=== PATIENT | female | born 1950 | race Caucasian/White ===

== ENCOUNTER → 2021-03-28 | Outpatient (CLI) | payer MEDICARE, BC ==
[~2021-03-28] MED LIST: ACYC-40 PO; ALBU6.7H8 INH; ASPI81TA45 PO; ATOR40TA78 PO; BECL10.62 INH; CETI10TA32 PO; CHRO1000 PO; CRAN425C4 PO; ESCI10TA97 PO; GABA600T7 PO; L.AC1CAP6 PO; LEVO88TA4 PO; LYSI500T25 PO; METH-639 PO; MONT10TA17 PO; MULT-449 PO; OXYB5TAB10 PO; PANT40TA6 PO
[2021-03-28 15:37] LABS: BASOPHILS % (AUTO) 2 % (0-1); EOSINOPHILS % (AUTO) 5 % (1-7); LYMPHOCYTES % (AUTO) 56 % (22-44); MEAN CORPUSCULAR HEMOGLOBIN 32.3 pg (27.0-34.8); MEAN CORPUSCULAR HGB CONC 33.6 g/dL (32.4-35.8); MEAN PLATELET VOLUME 9.5 fL (7.4-10.4); MONOCYTES % (AUTO) 7 % (2-9); NEUTROPHILS % (AUTO) 30 % (42-75); PLATELET COUNT 255 x10^3/uL (130-400); RED BLOOD COUNT 4.15 x10^6/uL (3.82-5.3); RED CELL DISTRIBUTION WIDTH 13.6 % (9.6-15.2)
[2021-03-28 15:43] LABS: ALBUMIN 3.9 g/dL (3.4-5.0); ANION GAP 3 mmol/L (5-15); CALCIUM 9.4 mg/dL (8.5-10.1); CHLORIDE 110 mmol/L (98-107)
[2021-03-28 15:47] LABS: ALANINE AMINOTRANSFERASE 29 U/L (12-78); ALKALINE PHOSPHATASE 91 U/L (45-117); BILIRUBIN,TOTAL 0.5 mg/dL (0.2-1.0); CREATININE 0.71 mg/dL (0.55-1.02)
[2021-03-28 15:55] LABS: INTERNATIONAL NORMALIZED RATIO 1.04 (0.93-1.1); PROTHROMBIN TIME 11.1 Seconds (9.6-11.5)
[2021-03-28 16:22] LABS: MD SCAN
[2021-03-28 21:07] LABS: MICROSCOPIC AUTO
== END | disposition home or self-care (01) ==
LOC: STAR 13:58
PROVIDERS: ATTEND Neurological Surgery
DX: Z01.818 Encounter for other preprocedural examination (principal); Z01.812 Encounter for preprocedural laboratory examination; Z01.811 Encounter for preprocedural respiratory examination; Z01.810 Encounter for preprocedural cardiovascular examination; R79.1 Abnormal coagulation profile; M48.061 Spinal stenosis, lumbar region without neurogenic claudication; M47.896 Other spondylosis, lumbar region; R82.90 Unspecified abnormal findings in urine; R94.31 Abnormal electrocardiogram [ECG] [EKG]; M51.36 Other intervertebral disc degeneration, lumbar region; M41.86 Other forms of scoliosis, lumbar region
CPT/HCPCS: 36415; 71046; 72114; 80053; 81001; 85025; 85610; 85730; 87086; 93005

== ENCOUNTER → 2021-04-10 | Outpatient (CLI) | payer MEDICARE, BC ==
[2021-04-10 10:55] LABS: MICROSCOPIC AUTO
== END | disposition home or self-care (01) ==
LOC: STAR 10:01
PROVIDERS: ATTEND Neurological Surgery
DX: Z01.812 Encounter for preprocedural laboratory examination (principal); Z20.822 Contact with and (suspected) exposure to COVID-19
CPT/HCPCS: 81001; 87086; U0003; U0005

== ENCOUNTER 2021-04-14 05:24 | Inpatient (IN) | payer MEDICARE, BC ==
[~2021-04-14] VITALS: Ht 172.7 cm; Wt 94.7 kg
[2021-04-14 05:55] VITALS: BP 113/78
[2021-04-14] MEDS ORDERED: CHLORHEXIDINE 15 ML UDC PO ONE (06:00)
[2021-04-14] MEDS ORDERED: LACTATED RINGERS 1,000 ML IV SCH (06:00)
[2021-04-14] MEDS ORDERED: HEPARIN 1,000 UNITS/ML, 30ML ONE (06:04)
[2021-04-14] MEDS ORDERED: BACITRACIN 50,000 UNIT ONE (06:04)
[2021-04-14] MEDS ORDERED: PROPOFOL 50 ML ONE (06:48)
[2021-04-14] MEDS ORDERED: MIDAZOLAM 1 MG/ML, 2ML ONE (06:48)
[2021-04-14] MEDS ORDERED: FENTANYL PF 250 MCG/5ML ONE (06:48)
[2021-04-14] MEDS ORDERED: KETAMINE 50 MG/ML, 10ML ONE (06:54)
[2021-04-14] MEDS ORDERED: HEPARIN 1,000 UNITS/ML, 30ML IVPB ONE (07:59)
[2021-04-14] MEDS ORDERED: NEOSTIGMINE 1 MG/ML, 10ML ONE (08:07)
[2021-04-14] MEDS ORDERED: CEFAZOLIN 1,000 MG ONE (08:07)
[2021-04-14] MEDS ORDERED: ROCURONIUM 10MG/ML,5ML ONE (08:07)
[2021-04-14] MEDS ORDERED: DEXAMETHASONE 4 MG/ML, 1ML ONE (08:07)
[2021-04-14] MEDS ORDERED: GLYCOPYRROLATE 0.2MG/1ML, 5ML ONE (08:07)
[2021-04-14] MEDS ORDERED: LIDOCAINE-MPF 2% ,5ML ONE (08:07)
[2021-04-14] MEDS ORDERED: ONDANSETRON 2MG/ML, 2ML ONE (08:07)
[2021-04-14] MEDS ORDERED: PROPOFOL 10 MG/ML, 20ML ONE (08:07)
[2021-04-14] MEDS ORDERED: SUCCINYLCHOLINE 20 MG/ML, 10ML ONE (08:07)
[2021-04-14] MEDS ORDERED: SUGAMMADEX 200 MG/2 ML IVPush ONE ×2 (08:40)
[2021-04-14] MEDS ORDERED: PROMETHAZINE 25 MG/ML, 1ML ONE (09:18)
[2021-04-14] MEDS: PROMETHAZINE 25 MG/ML, 1ML IVPush PRN ×2 (09:23→09:54)
[2021-04-14] MEDS ORDERED: MEPERIDINE/PF 25MG/0.5ML IVPush PRN (09:30)
[2021-04-14] MEDS ORDERED: ALBUTEROL SULFATE 2.5 MG/3 ML NPPB PRN (09:30)
[2021-04-14] MEDS ORDERED: METHOCARBAMOL 1,000 MG in DEXTROSE 5% 100 ML IV PRN (09:30)
[2021-04-14] MEDS ORDERED: LABETALOL 5MG/ML, 20ML IV PRN ×2 (09:30→11:00)
[2021-04-14] MEDS ORDERED: LORazepam 2 MG/ML, 1ML IVPush PRN (09:30)
[2021-04-14] MEDS ORDERED: OXYcodone 5 MG/5 ML ORAL.SOL UDC PO PRN (09:30)
[2021-04-14] MEDS ORDERED: ACETAMINOPHEN 325 MG TABLET PO PRN (09:30)
[2021-04-14] MEDS ORDERED: FENTANYL PF 100 MCG/2ML IV PRN (09:30)
[2021-04-14] MEDS ORDERED: HYDROmorphone 1 MG/ML, 1ML INJ IVPush PRN (09:30)
[2021-04-14] MEDS ORDERED: DIPHENHYDRAMINE 25 MG CAPSULE PO PRN (10:30)
[2021-04-14] MEDS ORDERED: MAGNESIUM HYDROXIDE 8%, 30ML UDC PO PRN (11:00)
[2021-04-14] MEDS ORDERED: ALBUTEROL HFA 90 MCG/SPRAY INH PRN (11:00)
[2021-04-14] MEDS ORDERED: PROMETHAZINE 25 MG/ML, 1ML IM PRN (11:00)
[2021-04-14] MEDS ORDERED: [UNRECOGNIZED DRUG - REMARK] MC SCH (11:00)
[2021-04-14] MEDS ORDERED: ONDANSETRON 2MG/ML, 2ML IV PRN (11:00)
[2021-04-14] MEDS: D5%-0.9% NACL+KCL 20MEQ 1,000 ML IV SCH ×2 (11:15→21:46)
[2021-04-14] MEDS: OXYcodone IR 5MG TABLET PO PRN ×2 (11:20→14:52)
[2021-04-14 12:25] VITALS: BP 121/74
[2021-04-14] MEDS: CEFAZOLIN PMX 1GM/50ML 50 ML IVPB SCH ×2 (15:03→23:34)
[2021-04-14] MEDS: METHOCARBAMOL 750 MG TABLET PO SCH ×2 (15:30→23:30)
[2021-04-14] MEDS: METHOCARBAMOL 750 MG in DEXTROSE 5% 100 ML IV SCH (15:42)
[2021-04-14] MEDS: GABAPENTIN 300 MG CAPSULE PO SCH ×2 (15:49→21:04)
[2021-04-14] MEDS: HYDROcodone/APAP 10/325 MG TABLET PO PRN ×2 (18:20→23:40)
[2021-04-14 19:29] VITALS: BP 106/66
[2021-04-14] MEDS: MONTELUKAST 10 MG TABLET PO SCH (21:04)
[2021-04-14] MEDS: ATORVASTATIN 40 MG TABLET PO SCH (21:04)
[2021-04-15] MEDS: METHOCARBAMOL 750 MG in DEXTROSE 5% 100 ML IV SCH ×4 (00:15→23:21)
[2021-04-15 00:20] VITALS: BP 104/70
[2021-04-15 03:25] VITALS: BP 109/71
[2021-04-15 04:56] LABS: BASOPHILS % (AUTO) 0 % (0-1); EOSINOPHILS % (AUTO) 0 % (1-7); LYMPHOCYTES % (AUTO) 19 % (22-44); MEAN CORPUSCULAR HEMOGLOBIN 32.5 pg (27.0-34.8); MEAN CORPUSCULAR HGB CONC 33.8 g/dL (32.4-35.8); MEAN PLATELET VOLUME 9.3 fL (7.4-10.4); MONOCYTES % (AUTO) 8 % (2-9); NEUTROPHILS % (AUTO) 73 % (42-75); PLATELET COUNT 222 x10^3/uL (130-400); RED BLOOD COUNT 3.96 x10^6/uL (3.82-5.3); RED CELL DISTRIBUTION WIDTH 14.2 % (9.6-15.2)
[2021-04-15 05:00] LABS: CHLORIDE 110 mmol/L (98-107)
[2021-04-15 05:05] LABS: ANION GAP 7 mmol/L (5-15); CALCIUM 8.7 mg/dL (8.5-10.1)
[2021-04-15] MEDS: LEVOTHYROXINE 88 MCG TABLET PO SCH (06:36)
[2021-04-15] MEDS: PANTOPRAZOLE 40MG TABLET PO SCH (06:36)
[2021-04-15] MEDS: ENOXAPARIN 40 MG/0.4 ML SQ SCH (06:36)
[2021-04-15] MEDS: D5%-0.9% NACL+KCL 20MEQ 1,000 ML IV SCH ×3 (07:00→21:01)
[2021-04-15] MEDS: METHOCARBAMOL 750 MG TABLET PO SCH ×3 (07:12→21:00)
[2021-04-15 07:50] VITALS: BP 112/64
[2021-04-15] MEDS: SENNA/DOCUSATE TABLET PO SCH (08:02)
[2021-04-15] MEDS: GABAPENTIN 300 MG CAPSULE PO SCH ×3 (08:02→20:00)
[2021-04-15] MEDS: CETIRIZINE 10 MG TABLET PO SCH (08:03)
[2021-04-15] MEDS: ACYCLOVIR 800 MG TABLET PO SCH (08:03)
[2021-04-15] MEDS: CITALOPRAM 20 MG TABLET PO SCH (08:03)
[2021-04-15] MEDS: HYDROcodone/APAP 10/325 MG TABLET PO PRN (08:03)
[2021-04-15] MEDS: OXYBUTYNIN CHLORIDE 5 MG TABLET PO SCH (08:03)
[2021-04-15 13:42] VITALS: BP 116/71
[2021-04-15] MEDS: METOCLOPRAMIDE 10MG TABLET PO SCH (15:28)
[2021-04-15 19:02] VITALS: BP 120/74
[2021-04-15] MEDS: MONTELUKAST 10 MG TABLET PO SCH (20:00)
[2021-04-15] MEDS: ATORVASTATIN 40 MG TABLET PO SCH (20:00)
[2021-04-15] MEDS: ZOLPIDEM 10MG TABLET PO PRN (20:00)
[2021-04-16 00:56] VITALS: BP 110/68
[2021-04-16] MEDS: HYDROcodone/APAP 10/325 MG TABLET PO PRN ×2 (01:02→12:25)
[2021-04-16 05:27] LABS: BASOPHILS % (AUTO) 1 % (0-1); EOSINOPHILS % (AUTO) 3 % (1-7); LYMPHOCYTES % (AUTO) 39 % (22-44); MEAN CORPUSCULAR HEMOGLOBIN 32.3 pg (27.0-34.8); MEAN CORPUSCULAR HGB CONC 33.6 g/dL (32.4-35.8); MEAN PLATELET VOLUME 9.1 fL (7.4-10.4); MONOCYTES % (AUTO) 9 % (2-9); NEUTROPHILS % (AUTO) 48 % (42-75); PLATELET COUNT 237 x10^3/uL (130-400); RED BLOOD COUNT 4.16 x10^6/uL (3.82-5.3); RED CELL DISTRIBUTION WIDTH 14.2 % (9.6-15.2)
[2021-04-16 05:32] LABS: ANION GAP 10 mmol/L (5-15); CALCIUM 8.8 mg/dL (8.5-10.1); CHLORIDE 106 mmol/L (98-107)
[2021-04-16 05:37] LABS: CREATININE 0.81 mg/dL (0.55-1.02)
[2021-04-16] MEDS: ENOXAPARIN 40 MG/0.4 ML SQ SCH (06:06)
[2021-04-16] MEDS: PANTOPRAZOLE 40MG TABLET PO SCH (06:06)
[2021-04-16] MEDS: METOCLOPRAMIDE 10MG TABLET PO SCH ×3 (06:06→16:59)
[2021-04-16] MEDS: LEVOTHYROXINE 88 MCG TABLET PO SCH (06:06)
[2021-04-16 07:31] VITALS: BP 106/67
[2021-04-16] MEDS: METHOCARBAMOL 750 MG TABLET PO SCH ×3 (07:39→16:59)
[2021-04-16] MEDS: METHOCARBAMOL 750 MG in DEXTROSE 5% 100 ML IV SCH (08:46)
[2021-04-16] MEDS: ACYCLOVIR 800 MG TABLET PO SCH (09:28)
[2021-04-16] MEDS: OXYBUTYNIN CHLORIDE 5 MG TABLET PO SCH (09:28)
[2021-04-16] MEDS: CITALOPRAM 20 MG TABLET PO SCH (09:28)
[2021-04-16] MEDS: GABAPENTIN 300 MG CAPSULE PO SCH ×3 (09:29→20:44)
[2021-04-16] MEDS: CETIRIZINE 10 MG TABLET PO SCH (09:29)
[2021-04-16] MEDS: SENNA/DOCUSATE TABLET PO SCH (09:29)
[2021-04-16 13:10] VITALS: BP 91/59
[2021-04-16] MEDS: D5%-0.9% NACL+KCL 20MEQ 1,000 ML IV SCH ×2 (13:26→21:53)
[2021-04-16] MEDS: MAGNESIUM CITRATE 300ML ORAL SOL PO PRN (17:01)
[2021-04-16 19:07] VITALS: BP 113/73
[2021-04-16] MEDS: ATORVASTATIN 40 MG TABLET PO SCH (20:44)
[2021-04-16] MEDS: MONTELUKAST 10 MG TABLET PO SCH (20:44)
[2021-04-16] MEDS: ZOLPIDEM 10MG TABLET PO PRN (20:45)
[2021-04-17] MEDS: METHOCARBAMOL 750 MG TABLET PO SCH ×3 (00:25→17:00)
[2021-04-17 02:31] VITALS: BP 120/74
[2021-04-17] MEDS: PANTOPRAZOLE 40MG TABLET PO SCH (05:00)
[2021-04-17] MEDS: LEVOTHYROXINE 88 MCG TABLET PO SCH (05:00)
[2021-04-17 05:41] LABS: BASOPHILS % (AUTO) 1 % (0-1); EOSINOPHILS % (AUTO) 5 % (1-7); LYMPHOCYTES % (AUTO) 39 % (22-44); MEAN CORPUSCULAR HEMOGLOBIN 32.3 pg (27.0-34.8); MEAN CORPUSCULAR HGB CONC 33.7 g/dL (32.4-35.8); MEAN PLATELET VOLUME 9.1 fL (7.4-10.4); MONOCYTES % (AUTO) 9 % (2-9); NEUTROPHILS % (AUTO) 47 % (42-75); PLATELET COUNT 225 x10^3/uL (130-400); RED CELL DISTRIBUTION WIDTH 13.9 % (9.6-15.2)
[2021-04-17 05:49] LABS: ANION GAP 6 mmol/L (5-15); CALCIUM 9.1 mg/dL (8.5-10.1); CHLORIDE 106 mmol/L (98-107)
[2021-04-17 05:50] LABS: CREATININE 0.72 mg/dL (0.55-1.02)
[2021-04-17] MEDS: METOCLOPRAMIDE 10MG TABLET PO SCH ×2 (06:00→11:00)
[2021-04-17] MEDS ORDERED: BUPIVACAINE/PF 0.5% ONE (06:17)
[2021-04-17] MEDS ORDERED: BACITRACIN 50,000 UNIT ONE (06:17)
[2021-04-17 06:50] VITALS: BP 107/70
[2021-04-17] MEDS: OXYBUTYNIN CHLORIDE 5 MG TABLET PO SCH (08:04)
[2021-04-17] MEDS: CITALOPRAM 20 MG TABLET PO SCH (08:04)
[2021-04-17] MEDS: ACYCLOVIR 800 MG TABLET PO SCH (08:04)
[2021-04-17] MEDS: SENNA/DOCUSATE TABLET PO SCH (08:04)
[2021-04-17] MEDS: GABAPENTIN 300 MG CAPSULE PO SCH ×3 (08:04→20:07)
[2021-04-17] MEDS: CETIRIZINE 10 MG TABLET PO SCH (08:04)
[2021-04-17] MEDS: D5%-0.9% NACL+KCL 20MEQ 1,000 ML IV SCH ×2 (09:00)
[2021-04-17] MEDS ORDERED: CHLORHEXIDINE 15 ML UDC ONE (10:11)
[2021-04-17] MEDS ORDERED: FENTANYL PF 250 MCG/5ML ONE (10:26)
[2021-04-17] MEDS ORDERED: MIDAZOLAM 1 MG/ML, 2ML ONE (10:26)
[2021-04-17] MEDS ORDERED: PROPOFOL 100 ML ONE (10:27)
[2021-04-17] MEDS ORDERED: PROPOFOL 10 MG/ML, 20ML ONE (10:29)
[2021-04-17] MEDS ORDERED: ONDANSETRON 2MG/ML, 2ML ONE (10:29)
[2021-04-17] MEDS ORDERED: CEFAZOLIN 1,000 MG ONE (10:29)
[2021-04-17] MEDS ORDERED: NEOSTIGMINE 1 MG/ML, 10ML ONE (10:29)
[2021-04-17] MEDS ORDERED: ROCURONIUM 10MG/ML,5ML ONE (10:29)
[2021-04-17] MEDS ORDERED: DEXAMETHASONE 4 MG/ML, 1ML ONE (10:29)
[2021-04-17] MEDS ORDERED: GLYCOPYRROLATE 0.2MG/1ML, 5ML ONE (10:29)
[2021-04-17] MEDS ORDERED: CHLORHEXIDINE 15 ML UDC PO ONE (11:00)
[2021-04-17] MEDS ORDERED: PHENYLEPHRINE 10 MG/ML ONE (11:56)
[2021-04-17] MEDS ORDERED: HALOPERIDOL 5 MG/ML IV PRN (12:00)
[2021-04-17] MEDS ORDERED: hydrALAzine 20 MG/ML, 1ML IV PRN (12:00)
[2021-04-17] MEDS ORDERED: ALBUTEROL SULFATE 2.5 MG/3 ML NPPB PRN (12:00)
[2021-04-17] MEDS ORDERED: ALBUTEROL/IPRATROPIUM 2.5MG/0.5MG, 3 ML NPPB PRN (12:00)
[2021-04-17] MEDS ORDERED: MEPERIDINE/PF 25MG/0.5ML IVPush PRN (12:00)
[2021-04-17] MEDS ORDERED: LABETALOL 5MG/ML, 20ML IV PRN (12:00)
[2021-04-17] MEDS ORDERED: PROMETHAZINE 25 MG/ML, 1ML IVPush PRN (12:00)
[2021-04-17] MEDS ORDERED: OXYcodone 5 MG/5 ML ORAL.SOL UDC PO PRN (12:00)
[2021-04-17] MEDS ORDERED: ACETAMINOPHEN 325 MG TABLET PO PRN (12:00)
[2021-04-17] MEDS ORDERED: morphine SULFATE 10 MG/ML, 1ML IVPush PRN (12:00)
[2021-04-17] MEDS ORDERED: BACITRACIN 50,000 UNIT IM ONE (12:27)
[2021-04-17] MEDS ORDERED: BUPIVACAINE/PF-EPI 0.5% 1:200K INFIL ONE (12:27)
[2021-04-17] MEDS ORDERED: PROPOFOL 50 ML ONE (13:33)
[2021-04-17] MEDS ORDERED: FENTANYL PF 100 MCG/2ML ONE ×3 (14:25→16:00)
[2021-04-17] MEDS ORDERED: OXYcodone 5 MG/5 ML ORAL.SOL UDC ONE (16:00)
[2021-04-17] MEDS ORDERED: HYDROmorphone 2 MG/ML, 1ML ONE (16:00)
[2021-04-17] MEDS: FENTANYL PF 100 MCG/2ML IV PRN ×3 (16:01→17:00)
[2021-04-17] MEDS: HYDROmorphone 1 MG/ML, 1ML INJ IVPush PRN ×2 (16:15→16:55)
[2021-04-17] MEDS ORDERED: METHOCARBAMOL 1,000 MG in DEXTROSE 5% 100 ML IV PRN (17:00)
[2021-04-17 17:45] VITALS: BP 137/84
[2021-04-17] MEDS ORDERED: DIPHENHYDRAMINE 25 MG CAPSULE PO PRN (18:23)
[2021-04-17] MEDS ORDERED: PROMETHAZINE 25 MG/ML, 1ML IM PRN (18:27)
[2021-04-17] MEDS ORDERED: ONDANSETRON 2MG/ML, 2ML IV PRN (18:30)
[2021-04-17] MEDS ORDERED: ZOLPIDEM 5MG TABLET PO PRN (18:30)
[2021-04-17 18:45] VITALS: BP 108/77
[2021-04-17] MEDS ORDERED: PHARMACOKINETIC MONITORING MC PRN (19:00)
[2021-04-17] MEDS ORDERED: VANCOMYCIN 2,000 MG in SODIUM CHLORIDE 0.9% 500 ML IV ONE (20:00)
[2021-04-17] MEDS: FAMOTIDINE 10 MG TAB PO SCH (20:07)
[2021-04-17] MEDS: MONTELUKAST 10 MG TABLET PO SCH (20:07)
[2021-04-17] MEDS: NS + 20MEQ KCL 1,000 ML IV SCH (20:07)
[2021-04-17] MEDS: ATORVASTATIN 40 MG TABLET PO SCH (20:07)
[2021-04-17] MEDS: ZOLPIDEM 5MG TABLET PO PRN (21:38)
[2021-04-17] MEDS: HYDROcodone/APAP 10/325 MG TABLET PO PRN (21:38)
[2021-04-18] VITALS: BP 131/78
[2021-04-18] MEDS: HYDROmorphone 2 MG/ML, 1ML IVPush PRN (00:30)
[2021-04-18] MEDS: HYDROcodone/APAP 10/325 MG TABLET PO PRN ×2 (01:56→05:55)
[2021-04-18 04:13] VITALS: BP 115/69
[2021-04-18 05:19] LABS: BASOPHILS % (AUTO) 0 % (0-1); EOSINOPHILS % (AUTO) 0 % (1-7); LYMPHOCYTES % (AUTO) 20 % (22-44); MEAN CORPUSCULAR HEMOGLOBIN 32.4 pg (27.0-34.8); MEAN CORPUSCULAR HGB CONC 34.2 g/dL (32.4-35.8); MEAN PLATELET VOLUME 9.2 fL (7.4-10.4); MONOCYTES % (AUTO) 12 % (2-9); NEUTROPHILS % (AUTO) 68 % (42-75); PLATELET COUNT 206 x10^3/uL (130-400); RED BLOOD COUNT 3.67 x10^6/uL (3.82-5.3); RED CELL DISTRIBUTION WIDTH 13.7 % (9.6-15.2)
[2021-04-18 05:34] LABS: ANION GAP 7 mmol/L (5-15); CALCIUM 8.5 mg/dL (8.5-10.1); CHLORIDE 106 mmol/L (98-107)
[2021-04-18 05:36] LABS: CREATININE 0.66 mg/dL (0.55-1.02)
[2021-04-18] MEDS: LEVOTHYROXINE 88 MCG TABLET PO SCH (05:55)
[2021-04-18] MEDS: PANTOPRAZOLE 40MG TABLET PO SCH (05:55)
[2021-04-18] MEDS ORDERED: ENOXAPARIN 40 MG/0.4 ML SQ SCH (06:00)
[2021-04-18 07:40] VITALS: BP 131/70
[2021-04-18] MEDS: SENNA/DOCUSATE TABLET PO SCH (08:21)
[2021-04-18] MEDS: CITALOPRAM 20 MG TABLET PO SCH (08:21)
[2021-04-18] MEDS: POLYETHYLENE GLYCOL 17 GM PACKET PO SCH (08:21)
[2021-04-18] MEDS: OXYBUTYNIN CHLORIDE 5 MG TABLET PO SCH (08:21)
[2021-04-18] MEDS: GABAPENTIN 300 MG CAPSULE PO SCH ×3 (08:21→20:20)
[2021-04-18] MEDS: CETIRIZINE 10 MG TABLET PO SCH (08:21)
[2021-04-18] MEDS: FAMOTIDINE 10 MG TAB PO SCH ×2 (08:21→20:20)
[2021-04-18] MEDS: ACYCLOVIR 800 MG TABLET PO SCH (08:21)
[2021-04-18] MEDS ORDERED: METHOCARBAMOL 750 MG TABLET ONE (09:26)
[2021-04-18] MEDS: OXYcodone IR 5MG TABLET PO PRN ×5 (09:32→22:26)
[2021-04-18] MEDS: METHOCARBAMOL 750 MG TABLET PO PRN ×2 (09:32→18:27)
[2021-04-18] MEDS: NS + 20MEQ KCL 1,000 ML IV SCH ×2 (12:29→22:26)
[2021-04-18] MEDS ORDERED: ENOXAPARIN 40 MG/0.4 ML SQ ONE (13:00)
[2021-04-18 13:57] VITALS: BP 132/76
[2021-04-18] MEDS: ACETAMINOPHEN 325 MG TABLET PO SCH ×2 (18:27→22:26)
[2021-04-18 19:30] VITALS: BP 116/72
[2021-04-18] MEDS ORDERED: VANCOMYCIN 1,800 MG in SODIUM CHLORIDE 0.9% 250 ML IV SCH (20:00)
[2021-04-18] MEDS: MONTELUKAST 10 MG TABLET PO SCH (20:21)
[2021-04-18] MEDS: ATORVASTATIN 40 MG TABLET PO SCH (20:22)
[2021-04-19 00:38] VITALS: BP 117/70
[2021-04-19] MEDS: ACETAMINOPHEN 325 MG TABLET PO SCH ×5 (02:46→22:10)
[2021-04-19] MEDS: OXYcodone IR 5MG TABLET PO PRN ×3 (02:46→22:10)
[2021-04-19] MEDS: METHOCARBAMOL 750 MG TABLET PO PRN (02:48)
[2021-04-19 05:18] LABS: BASOPHILS % (AUTO) 1 % (0-1); EOSINOPHILS % (AUTO) 2 % (1-7); LYMPHOCYTES % (AUTO) 18 % (22-44); MEAN CORPUSCULAR HEMOGLOBIN 32.1 pg (27.0-34.8); MEAN PLATELET VOLUME 9.1 fL (7.4-10.4); MONOCYTES % (AUTO) 13 % (2-9); NEUTROPHILS % (AUTO) 67 % (42-75); PLATELET COUNT 219 x10^3/uL (130-400); RED BLOOD COUNT 3.52 x10^6/uL (3.82-5.3); RED CELL DISTRIBUTION WIDTH 13.8 % (9.6-15.2)
[2021-04-19 05:19] LABS: ANION GAP 6 mmol/L (5-15); CALCIUM 8.5 mg/dL (8.5-10.1); CHLORIDE 107 mmol/L (98-107); CREATININE 0.46 mg/dL (0.55-1.02)
[2021-04-19] MEDS: PANTOPRAZOLE 40MG TABLET PO SCH (05:19)
[2021-04-19] MEDS: LEVOTHYROXINE 88 MCG TABLET PO SCH (05:19)
[2021-04-19] MEDS: HYDROcodone/APAP 10/325 MG TABLET PO PRN (05:20)
[2021-04-19] MEDS ORDERED: EPINEPHRINE 1 MG/ML, 1ML ONE (06:15)
[2021-04-19] MEDS ORDERED: BUPIVACAINE/PF 0.5% ONE (06:15)
[2021-04-19] MEDS ORDERED: BACITRACIN 50,000 UNIT ONE (06:15)
[2021-04-19] MEDS ORDERED: BUPIVACAINE 0.25% ONE (06:15)
[2021-04-19] MEDS ORDERED: CHLORHEXIDINE 15 ML UDC PO ONE (06:30)
[2021-04-19] MEDS ORDERED: FENTANYL PF 250 MCG/5ML ONE (06:54)
[2021-04-19] MEDS: NS + 20MEQ KCL 1,000 ML IV SCH ×2 (07:00→17:00)
[2021-04-19] MEDS ORDERED: BUPIVACAINE/PF 0.5% INFIL ONE (07:58)
[2021-04-19] MEDS ORDERED: EPINEPHRINE 1 MG/ML, 1ML INFIL ONE (07:58)
[2021-04-19] MEDS ORDERED: HYDROmorphone 1 MG/ML, 1ML INJ ONE ×3 (08:17→12:02)
[2021-04-19] MEDS: CETIRIZINE 10 MG TABLET PO SCH (09:00)
[2021-04-19] MEDS: POLYETHYLENE GLYCOL 17 GM PACKET PO SCH (09:00)
[2021-04-19] MEDS: CITALOPRAM 20 MG TABLET PO SCH (09:00)
[2021-04-19] MEDS: GABAPENTIN 300 MG CAPSULE PO SCH ×2 (09:00→17:50)
[2021-04-19] MEDS: OXYBUTYNIN CHLORIDE 5 MG TABLET PO SCH (09:00)
[2021-04-19] MEDS: SENNA/DOCUSATE TABLET PO SCH (09:00)
[2021-04-19] MEDS: FAMOTIDINE 10 MG TAB PO SCH ×2 (09:00→21:13)
[2021-04-19] MEDS: ACYCLOVIR 800 MG TABLET PO SCH (09:00)
[2021-04-19] MEDS ORDERED: VANCOMYCIN 1,000 MG ONE (10:48)
[2021-04-19] MEDS ORDERED: VANCOMYCIN 1,000 MG IM ONE (10:49)
[2021-04-19] MEDS: FENTANYL PF 100 MCG/2ML IV PRN ×2 (11:20→11:55)
[2021-04-19] MEDS ORDERED: FENTANYL PF 100 MCG/2ML ONE (11:24)
[2021-04-19] MEDS ORDERED: OXYcodone 5 MG/5 ML ORAL.SOL UDC ONE (11:24)
[2021-04-19] MEDS ORDERED: hydrALAzine 20 MG/ML, 1ML IV PRN (11:30)
[2021-04-19] MEDS ORDERED: ACETAMINOPHEN 325 MG TABLET PO PRN (11:30)
[2021-04-19] MEDS ORDERED: OXYcodone 5 MG/5 ML ORAL.SOL UDC PO PRN (11:30)
[2021-04-19] MEDS ORDERED: DIAZEPAM 5 MG/ML, 2ML IVPush PRN (11:30)
[2021-04-19] MEDS ORDERED: KETOROLAC 30 MG/1 ML IV PRN (11:30)
[2021-04-19] MEDS ORDERED: LABETALOL 5MG/ML, 20ML IV PRN (11:30)
[2021-04-19] MEDS ORDERED: PROMETHAZINE 25 MG/ML, 1ML IV PRN (11:30)
[2021-04-19] MEDS ORDERED: HYDROmorphone 2 MG/ML, 1ML IVPush PRN (11:30)
[2021-04-19] MEDS ORDERED: ALBUTEROL SULFATE 2.5 MG/3 ML NPPB PRN (11:30)
[2021-04-19] MEDS ORDERED: MEPERIDINE/PF 25MG/0.5ML IVPush PRN (11:30)
[2021-04-19] MEDS ORDERED: CEFAZOLIN 1,000 MG ONE (11:49)
[2021-04-19] MEDS ORDERED: DEXAMETHASONE 4 MG/ML, 1ML ONE (11:49)
[2021-04-19] MEDS ORDERED: ROCURONIUM 10MG/ML,5ML ONE (11:49)
[2021-04-19] MEDS ORDERED: NEOSTIGMINE 1 MG/ML, 10ML ONE (11:49)
[2021-04-19] MEDS ORDERED: ONDANSETRON 2MG/ML, 2ML ONE (11:49)
[2021-04-19] MEDS ORDERED: GLYCOPYRROLATE 0.2MG/1ML, 5ML ONE (11:49)
[2021-04-19] MEDS ORDERED: SUCCINYLCHOLINE 20 MG/ML, 10ML ONE (11:49)
[2021-04-19] MEDS ORDERED: PROPOFOL 10 MG/ML, 20ML ONE (11:49)
[2021-04-19] MEDS ORDERED: METHOCARBAMOL 1,000 MG in DEXTROSE 5% 100 ML IV ONE (12:30)
[2021-04-19 13:10] VITALS: BP 115/75
[2021-04-19] MEDS: D5%-0.9% NACL+KCL 20MEQ 1,000 ML IV SCH (17:48)
[2021-04-19] MEDS: CEFAZOLIN PMX 1GM/50ML 50 ML IVPB SCH (17:48)
[2021-04-19 19:00] VITALS: BP 105/69
[2021-04-19] MEDS: ATORVASTATIN 40 MG TABLET PO SCH (21:13)
[2021-04-19] MEDS: MONTELUKAST 10 MG TABLET PO SCH (21:13)
[2021-04-20 00:31] VITALS: BP 93/59
[2021-04-20] MEDS: D5%-0.9% NACL+KCL 20MEQ 1,000 ML IV SCH ×3 (02:00→19:31)
[2021-04-20] MEDS: GABAPENTIN 300 MG CAPSULE PO SCH ×4 (02:23→20:27)
[2021-04-20] MEDS: ACETAMINOPHEN 325 MG TABLET PO SCH ×6 (02:23→20:27)
[2021-04-20] MEDS: OXYcodone IR 5MG TABLET PO PRN ×3 (02:24→20:27)
[2021-04-20] MEDS: CEFAZOLIN PMX 1GM/50ML 50 ML IVPB SCH ×4 (02:24→17:20)
[2021-04-20] MEDS: NS + 20MEQ KCL 1,000 ML IV SCH ×3 (03:00→23:00)
[2021-04-20 04:19] VITALS: BP 102/65
[2021-04-20 05:09] LABS: BASOPHILS % (AUTO) 0 % (0-1); CHLORIDE 105 mmol/L (98-107); EOSINOPHILS % (AUTO) 0 % (1-7); LYMPHOCYTES % (AUTO) 20 % (22-44); MEAN CORPUSCULAR HEMOGLOBIN 32.4 pg (27.0-34.8); MEAN CORPUSCULAR HGB CONC 34.2 g/dL (32.4-35.8); MEAN PLATELET VOLUME 8.8 fL (7.4-10.4); MONOCYTES % (AUTO) 15 % (2-9); NEUTROPHILS % (AUTO) 65 % (42-75); PLATELET COUNT 202 x10^3/uL (130-400); RED CELL DISTRIBUTION WIDTH 13.5 % (9.6-15.2)
[2021-04-20 05:19] LABS: ANION GAP 6 mmol/L (5-15); CALCIUM 8.1 mg/dL (8.5-10.1); CREATININE 0.48 mg/dL (0.55-1.02)
[2021-04-20] MEDS: PANTOPRAZOLE 40MG TABLET PO SCH (06:30)
[2021-04-20] MEDS: LEVOTHYROXINE 88 MCG TABLET PO SCH (06:30)
[2021-04-20 07:34] VITALS: BP 96/62
[2021-04-20] MEDS: FAMOTIDINE 10 MG TAB PO SCH ×2 (08:25→20:26)
[2021-04-20] MEDS: ENOXAPARIN 30 MG/0.3 ML SQ SCH ×2 (08:25→20:26)
[2021-04-20] MEDS: CITALOPRAM 20 MG TABLET PO SCH (08:26)
[2021-04-20] MEDS: OXYBUTYNIN CHLORIDE 5 MG TABLET PO SCH (08:26)
[2021-04-20] MEDS: ACYCLOVIR 800 MG TABLET PO SCH (08:26)
[2021-04-20] MEDS: SENNA/DOCUSATE TABLET PO SCH (08:26)
[2021-04-20] MEDS: CETIRIZINE 10 MG TABLET PO SCH (08:26)
[2021-04-20] MEDS: POLYETHYLENE GLYCOL 17 GM PACKET PO SCH (08:27)
[2021-04-20] MEDS: METHOCARBAMOL 750 MG TABLET PO PRN (13:56)
[2021-04-20 14:21] VITALS: BP 130/76
[2021-04-20 19:21] VITALS: BP 102/62
[2021-04-20] MEDS: ZOLPIDEM 5MG TABLET PO PRN (20:27)
[2021-04-20] MEDS: MONTELUKAST 10 MG TABLET PO SCH (20:27)
[2021-04-20] MEDS: ATORVASTATIN 40 MG TABLET PO SCH (20:28)
[2021-04-21] MEDS: D5%-0.9% NACL+KCL 20MEQ 1,000 ML IV SCH ×2 (00:31→10:51)
[2021-04-21] MEDS: OXYcodone IR 5MG TABLET PO PRN ×3 (01:15→18:09)
[2021-04-21] MEDS: ACETAMINOPHEN 325 MG TABLET PO SCH ×6 (01:15→20:43)
[2021-04-21] MEDS: CEFAZOLIN PMX 1GM/50ML 50 ML IVPB SCH ×3 (01:16→18:09)
[2021-04-21 02:34] VITALS: BP 98/52
[2021-04-21 05:37] LABS: BASOPHILS % (AUTO) 1 % (0-1); EOSINOPHILS % (AUTO) 6 % (1-7); LYMPHOCYTES % (AUTO) 25 % (22-44); MEAN CORPUSCULAR HEMOGLOBIN 32.7 pg (27.0-34.8); MEAN CORPUSCULAR HGB CONC 33.9 g/dL (32.4-35.8); MEAN PLATELET VOLUME 8.6 fL (7.4-10.4); MONOCYTES % (AUTO) 11 % (2-9); NEUTROPHILS % (AUTO) 58 % (42-75); PLATELET COUNT 232 x10^3/uL (130-400); RED BLOOD COUNT 2.66 x10^6/uL (3.82-5.3); RED CELL DISTRIBUTION WIDTH 13.9 % (9.6-15.2)
[2021-04-21] MEDS: LEVOTHYROXINE 88 MCG TABLET PO SCH (05:41)
[2021-04-21] MEDS: PANTOPRAZOLE 40MG TABLET PO SCH (05:41)
[2021-04-21 05:47] LABS: CALCIUM 8.2 mg/dL (8.5-10.1); CHLORIDE 106 mmol/L (98-107)
[2021-04-21 05:50] LABS: ANION GAP 6 mmol/L (5-15); CREATININE 0.59 mg/dL (0.55-1.02)
[2021-04-21 06:35] VITALS: BP 100/63
[2021-04-21] MEDS: CETIRIZINE 10 MG TABLET PO SCH (08:17)
[2021-04-21] MEDS: FAMOTIDINE 10 MG TAB PO SCH ×2 (08:17→20:43)
[2021-04-21] MEDS: OXYBUTYNIN CHLORIDE 5 MG TABLET PO SCH (08:18)
[2021-04-21] MEDS: CITALOPRAM 20 MG TABLET PO SCH (08:18)
[2021-04-21] MEDS: SENNA/DOCUSATE TABLET PO SCH (08:18)
[2021-04-21] MEDS: GABAPENTIN 300 MG CAPSULE PO SCH ×3 (08:18→20:43)
[2021-04-21] MEDS: POLYETHYLENE GLYCOL 17 GM PACKET PO SCH (08:18)
[2021-04-21] MEDS: ACYCLOVIR 800 MG TABLET PO SCH (08:18)
[2021-04-21] MEDS: ENOXAPARIN 30 MG/0.3 ML SQ SCH ×2 (08:19→20:44)
[2021-04-21] MEDS: MAGNESIUM CITRATE 300ML ORAL SOL PO PRN (09:35)
[2021-04-21] MEDS: NS + 20MEQ KCL 1,000 ML IV SCH ×2 (10:51→20:51)
[2021-04-21] MEDS: BISACODYL 10 MG SUPP PR PRN (13:24)
[2021-04-21 13:39] VITALS: BP 121/76
[2021-04-21] MEDS ORDERED: CALCIUM CARBONATE 500 MG TAB.CHEW PO PRN (14:00)
[2021-04-21] MEDS: HYDROmorphone 2 MG/ML, 1ML IVPush PRN (15:49)
[2021-04-21] MEDS ORDERED: CALCIUM CARBONATE 500 MG TAB.CHEW PO SCH (16:00)
[2021-04-21 20:03] VITALS: BP 119/62
[2021-04-21] MEDS: ATORVASTATIN 40 MG TABLET PO SCH (20:43)
[2021-04-21] MEDS: MONTELUKAST 10 MG TABLET PO SCH (20:43)
[2021-04-21] MEDS: ZOLPIDEM 5MG TABLET PO PRN (20:43)
[2021-04-22] MEDS: ACETAMINOPHEN 325 MG TABLET PO SCH ×6 (01:00→20:12)
[2021-04-22 01:57] VITALS: BP 106/65
[2021-04-22] MEDS: CEFAZOLIN PMX 1GM/50ML 50 ML IVPB SCH ×3 (02:51→19:30)
[2021-04-22] MEDS: D5%-0.9% NACL+KCL 20MEQ 1,000 ML IV SCH ×3 (04:00→21:23)
[2021-04-22] MEDS: PANTOPRAZOLE 40MG TABLET PO SCH (05:47)
[2021-04-22] MEDS: LEVOTHYROXINE 88 MCG TABLET PO SCH (05:47)
[2021-04-22 06:20] VITALS: BP 115/67
[2021-04-22] MEDS: NS + 20MEQ KCL 1,000 ML IV SCH ×2 (08:00→16:19)
[2021-04-22] MEDS ORDERED: MAGNESIUM CITRATE 300ML ORAL SOL PO PRN (09:00)
[2021-04-22] MEDS: FAMOTIDINE 10 MG TAB PO SCH ×2 (09:01→20:12)
[2021-04-22] MEDS: CITALOPRAM 20 MG TABLET PO SCH (09:01)
[2021-04-22] MEDS: SENNA/DOCUSATE TABLET PO SCH (09:01)
[2021-04-22] MEDS: OXYBUTYNIN CHLORIDE 5 MG TABLET PO SCH (09:01)
[2021-04-22] MEDS: ACYCLOVIR 800 MG TABLET PO SCH (09:01)
[2021-04-22] MEDS: CETIRIZINE 10 MG TABLET PO SCH (09:01)
[2021-04-22] MEDS: GABAPENTIN 300 MG CAPSULE PO SCH ×3 (09:01→20:12)
[2021-04-22] MEDS: POLYETHYLENE GLYCOL 17 GM PACKET PO SCH (09:02)
[2021-04-22] MEDS: ENOXAPARIN 30 MG/0.3 ML SQ SCH ×2 (09:02→20:12)
[2021-04-22] MEDS: METHOCARBAMOL 750 MG TABLET PO PRN (09:11)
[2021-04-22] MEDS: OXYcodone IR 5MG TABLET PO PRN ×2 (09:11→19:30)
[2021-04-22] MEDS: BISACODYL 10 MG SUPP PR PRN (12:22)
[2021-04-22 13:18] VITALS: BP 119/68
[2021-04-22 18:57] VITALS: BP 145/78
[2021-04-22] MEDS: ZOLPIDEM 5MG TABLET PO PRN (20:12)
[2021-04-22] MEDS: MONTELUKAST 10 MG TABLET PO SCH (20:12)
[2021-04-22] MEDS: ATORVASTATIN 40 MG TABLET PO SCH (21:00)
[2021-04-23 00:54] VITALS: BP 137/81
[2021-04-23] MEDS: OXYcodone IR 5MG TABLET PO PRN ×6 (00:59→22:32)
[2021-04-23] MEDS: ACETAMINOPHEN 325 MG TABLET PO SCH ×6 (00:59→22:31)
[2021-04-23] MEDS: CEFAZOLIN PMX 1GM/50ML 50 ML IVPB SCH ×2 (03:13→11:00)
[2021-04-23] MEDS: NS + 20MEQ KCL 1,000 ML IV SCH ×2 (04:00→14:00)
[2021-04-23] MEDS: D5%-0.9% NACL+KCL 20MEQ 1,000 ML IV SCH ×3 (04:21→20:26)
[2021-04-23] MEDS: PANTOPRAZOLE 40MG TABLET PO SCH (05:27)
[2021-04-23] MEDS: LEVOTHYROXINE 88 MCG TABLET PO SCH (05:27)
[2021-04-23 08:53] VITALS: BP 117/59
[2021-04-23] MEDS: ACYCLOVIR 800 MG TABLET PO SCH (09:29)
[2021-04-23] MEDS: SENNA/DOCUSATE TABLET PO SCH (09:30)
[2021-04-23] MEDS: CITALOPRAM 20 MG TABLET PO SCH (09:30)
[2021-04-23] MEDS: OXYBUTYNIN CHLORIDE 5 MG TABLET PO SCH (09:30)
[2021-04-23] MEDS: CETIRIZINE 10 MG TABLET PO SCH (09:31)
[2021-04-23] MEDS: GABAPENTIN 300 MG CAPSULE PO SCH ×3 (09:31→22:31)
[2021-04-23] MEDS: FAMOTIDINE 10 MG TAB PO SCH ×2 (09:31→20:32)
[2021-04-23] MEDS: ENOXAPARIN 30 MG/0.3 ML SQ SCH ×2 (09:32→20:33)
[2021-04-23] MEDS: POLYETHYLENE GLYCOL 17 GM PACKET PO SCH (09:32)
[2021-04-23] MEDS ORDERED: OXYC5TAB98 PO (09:40)
[2021-04-23] MEDS ORDERED: METH-640 PO (09:40)
[2021-04-23] MEDS ORDERED: ZOLP-413 PO (09:40)
[2021-04-23] MEDS ORDERED: CEPH500T PO (09:40)
[2021-04-23] MEDS ORDERED: MAGN296S4 PO (09:40)
[2021-04-23] MEDS: METHOCARBAMOL 750 MG TABLET PO PRN ×2 (09:42→17:30)
[2021-04-23 14:22] VITALS: BP 112/67
[2021-04-23 19:13] VITALS: BP 114/67
[2021-04-23] MEDS: ATORVASTATIN 40 MG TABLET PO SCH (20:32)
[2021-04-23] MEDS: MONTELUKAST 10 MG TABLET PO SCH (20:32)
[2021-04-23] MEDS: ZOLPIDEM 5MG TABLET PO PRN (20:33)
[2021-04-24] MEDS: ACETAMINOPHEN 325 MG TABLET PO SCH ×3 (03:03→12:40)
[2021-04-24] MEDS: OXYcodone IR 5MG TABLET PO PRN ×2 (03:04→06:14)
[2021-04-24 03:28] VITALS: BP 130/72
[2021-04-24] MEDS: D5%-0.9% NACL+KCL 20MEQ 1,000 ML IV SCH ×2 (06:00→12:42)
[2021-04-24] MEDS: LEVOTHYROXINE 88 MCG TABLET PO SCH (06:15)
[2021-04-24] MEDS: PANTOPRAZOLE 40MG TABLET PO SCH (06:15)
[2021-04-24 07:30] VITALS: BP 112/71
[2021-04-24] MEDS: POLYETHYLENE GLYCOL 17 GM PACKET PO SCH (09:00)
[2021-04-24] MEDS: NS + 20MEQ KCL 1,000 ML IV SCH ×2 (10:00)
[2021-04-24] MEDS: ENOXAPARIN 30 MG/0.3 ML SQ SCH (10:29)
[2021-04-24] MEDS: SENNA/DOCUSATE TABLET PO SCH (10:29)
[2021-04-24] MEDS: OXYBUTYNIN CHLORIDE 5 MG TABLET PO SCH (10:29)
[2021-04-24] MEDS: ACYCLOVIR 800 MG TABLET PO SCH (10:29)
[2021-04-24] MEDS: FAMOTIDINE 10 MG TAB PO SCH (10:29)
[2021-04-24] MEDS: METHOCARBAMOL 750 MG TABLET PO PRN (10:29)
[2021-04-24] MEDS: CETIRIZINE 10 MG TABLET PO SCH (10:30)
[2021-04-24] MEDS: GABAPENTIN 300 MG CAPSULE PO SCH (10:31)
[2021-04-24] MEDS: CITALOPRAM 20 MG TABLET PO SCH (10:31)
[2021-04-24 13:35] VITALS: BP 98/62
== END 2021-04-24 15:00 | DRG 455 ==
LOC: ORIP 05:24 → 4NE 10:15
PROVIDERS: ADMIT Neurological Surgery; ATTEND Neurological Surgery
PROC: 0WJH0ZZ Inspection of Retroperitoneum, Open Approach (ICD-10-PCS; 2021-04-14)
PROC: 0SG10A0 Fusion of 2 or more Lumbar Vertebral Joints with Interbody Fusion Device, Anterior Approach, Anterior Column, Open Approach (ICD-10-PCS; 2021-04-17)
PROC: 0SG1071 Fusion of 2 or more Lumbar Vertebral Joints with Autologous Tissue Substitute, Posterior Approach, Posterior Column, Open Approach (ICD-10-PCS; 2021-04-19)
PROC: 0SG3071 Fusion of Lumbosacral Joint with Autologous Tissue Substitute, Posterior Approach, Posterior Column, Open Approach (ICD-10-PCS; 2021-04-19)
PROC: 01NB0ZZ Release Lumbar Nerve, Open Approach (ICD-10-PCS; 2021-04-19)
PROC: 4A11X4G Monitoring of Peripheral Nervous Electrical Activity, Intraoperative, External Approach (ICD-10-PCS; 2021-04-19)
PROC: 8E0W0CZ Robotic Assisted Procedure of Trunk Region, Open Approach (ICD-10-PCS; 2021-04-19)
PROC: 00UT0KZ Supplement Spinal Meninges with Nonautologous Tissue Substitute, Open Approach (ICD-10-PCS; 2021-04-19)
PROC: 0SG30AJ Fusion of Lumbosacral Joint with Interbody Fusion Device, Posterior Approach, Anterior Column, Open Approach (ICD-10-PCS; principal; 2021-04-19 07:00)
DX: M48.061 Spinal stenosis, lumbar region without neurogenic claudication (principal); M43.16 Spondylolisthesis, lumbar region; M43.17 Spondylolisthesis, lumbosacral region; M47.26 Other spondylosis with radiculopathy, lumbar region; K59.00 Constipation, unspecified; E66.9 Obesity, unspecified; Z68.31 Body mass index [BMI] 31.0-31.9, adult; Z91.018 Allergy to other foods; G89.29 Other chronic pain; M41.86 Other forms of scoliosis, lumbar region; M41.87 Other forms of scoliosis, lumbosacral region; M51.16 Intervertebral disc disorders with radiculopathy, lumbar region; M51.17 Intervertebral disc disorders with radiculopathy, lumbosacral region; Z53.9 Procedure and treatment not carried out, unspecified reason; Z90.710 Acquired absence of both cervix and uterus
CPT/HCPCS: 36415; 72100; 72131; 74018; 80048; 85025; 86850; 86900; 95938; 95941; C1713; C1776; G0378; J0171; J0690; J1100; J1170; J1644; J1650; J2250; J2405; J2550; J2704; J2710; J3010; J3370; J3480; C1760; C1763; C1769; C1781; C1889; J0330; J2370; J2800; J7040; J7050; J7120; Q0163; Q0181